=== PATIENT | male | born 1995 | race Caucasian/White ===

== ENCOUNTER 2019-10-22 14:30 | Emergency (ER) | payer SELFPAY ==
[~2019-10-22] VITALS: Ht 185.4 cm; Wt 82.0 kg
[~2019-10-22 14:30] MED LIST: INSULIN; METF-416 PO
[2019-10-22] MEDS ORDERED: TETANUS AND DIPHTHERIA TOX/PF 0.5ML SYR (ADULT) IM ONE (15:00)
[2019-10-22] MEDS ORDERED: LIDOCAINE HCL/EPINEPHRINE 1%-EPI 1:100,000 20 ML VIAL INFIL ONE (15:00)
[2019-10-22] MEDS ORDERED: SULFAMETHOXAZOLE/TRIMETHOPRIM 800/160MG TABLET PO ONE (15:15)
[2019-10-22] MEDS ORDERED: CEPHALEXIN 250MG CAPSULE PO ONE (15:15)
[2019-10-22] MEDS ORDERED: BACITRACIN ZINC OINT UDPKT TOP ONE (16:45)
[2019-10-22 17:28] VITALS: BP 126/82
== END 2019-10-22 17:30 | disposition home or self-care (01) ==
LOC: ER 14:30
DX: L02.415 Cutaneous abscess of right lower limb (principal); L03.115 Cellulitis of right lower limb; F17.290 Nicotine dependence, other tobacco product, uncomplicated; F12.10 Cannabis abuse, uncomplicated; E11.9 Type 2 diabetes mellitus without complications
CPT/HCPCS: 10060; 90471; 90714; 99284; J3490